=== PATIENT | female | born 1960 | race Caucasian/White ===

== ENCOUNTER 2019-11-10 15:31 | Inpatient (IN) ==
[2019-11-10] MEDS ORDERED: Ipratropium/Albuterol Neb 3 ML IH ONE (15:53)
[2019-11-10] MEDS ORDERED: Isovue-370 500 ML BOTTLE IVP ONE (15:58)
[2019-11-10 16:08] LABS: Hematocrit 38.3 % (35.3-44.9); Hemoglobin 11.8 g/dL (11.5-15.4); Mean Corpuscular HGB Conc 30.8 g/dL (31.6-35.5); Mean Corpuscular Hemoglobin 29.6 pg (28.0-33.3); Mean Platelet Volume 10.6 fL (9.4-12.4); Platelet Count 201 K/mcL (140-400); Red Blood Count 3.99 M/mcL (3.82-4.97); White Blood Count 9.2 K/mcL (4.3-11.1)
[2019-11-10] MEDS ORDERED: methylPREDNISolone 125 MG/2 ML VIAL IVP ONE (16:14)
[2019-11-10 16:20] LABS: Calcium 8.5 mg/dL (8.6-10.3); Potassium 4.7 mEq/L (3.5-5.1)
[2019-11-10] MEDS ORDERED: 0.9 % Sodium Chloride 500 ML IVC STA (16:27)
[2019-11-10 17:38] LABS: Troponin I 0.08 ng/mL (< 0.04)
[2019-11-10] MEDS ORDERED: Aspirin 81 MG TAB.CHEW PO STA (17:44)
[2019-11-10] MEDS ORDERED: CefTRIAXone 1,000 MG VIAL IM ONE (18:35)
[2019-11-10] MEDS ORDERED: Azithromycin 250 MG TABLET PO ONE (18:43)
[2019-11-10] MEDS ORDERED: cefTRIAXone 1,000 MG in Water for inj. (sterile) 10 ML IVP ONE (19:08)
[2019-11-10] MEDS ORDERED: Furosemide 20 MG/2 ML VIAL IVP ONE (20:14)
[2019-11-10] MEDS ORDERED: Naloxone 0.4 MG/ML INJ IVP PRN (21:02)
[2019-11-10] MEDS ORDERED: Nitroglycerin 0.4 MG TAB.SUBL SL PRN (23:03)
[2019-11-11 05:29] LABS: Basophils % 0.5 %; Eosinophils % 0.5 %; Hematocrit 39.1 % (35.3-44.9); Hemoglobin 11.9 g/dL (11.5-15.4); Immature Granulocytes % 3.3 % (0-4); Lymphocytes # 0.8 K/mcL (0.6-4.6); Lymphocytes % 10.2 %; Mean Corpuscular HGB Conc 30.4 g/dL (31.6-35.5); Mean Corpuscular Volume 95.1 fL (83.0-100.0); Mean Platelet Volume 10.2 fL (9.4-12.4); Monocytes # 0.3 K/mcL (0.0-1.3); Monocytes % 3.1 %; Neutrophils # 6.6 K/mcL (1.6-8.9); Nucleated Red Blood Cells 0.4 /100 WBC (0); Platelet Count 215 K/mcL (140-400); Red Blood Count 4.11 M/mcL (3.82-4.97); Red Cell Distribution Width 15.9 % (11.5-14.5); Segmented Neutrophils % 82.4 %
[2019-11-11] MEDS: Ipratropium/Albuterol Neb 3 ML IH PRN ×3 (05:29→20:30)
[2019-11-11 05:49] LABS: Calcium 8.7 mg/dL (8.6-10.3); Potassium 4.5 mEq/L (3.5-5.1)
[2019-11-11 07:09] LABS: Platelet Estimate Normal (Normal); Reactive Lymphocytes Present (Not Present)
[2019-11-11] MEDS: Budesonide/Formoterol 160/4.5 1 PUFF INH IH SCH ×2 (07:58→20:28)
[2019-11-11] MEDS: Baclofen 10 MG TABLET PO SCH ×2 (08:44→20:08)
[2019-11-11] MEDS: Aspirin Enteric Coated 81 MG Tablet PO SCH (08:44)
[2019-11-11] MEDS ORDERED: Lisinopril-HCTZ 20-12.5mg TABLET PO SCH (09:00)
[2019-11-11] MEDS ORDERED: Furosemide 40 MG/4 ML VIAL IVP SCH ×2 (09:00→17:00)
[2019-11-11] MEDS ORDERED: Perflutren Lipid Microsphere 1.3 ML in 0.9 % Sodium Chloride 8.7 ML IVP ONE (11:24)
[2019-11-11] MEDS: Furosemide 40 MG/4 ML VIAL IVP SCH ×2 (15:32→23:50)
[2019-11-11] MEDS ORDERED: Menthol 9.1 MG LOZENGE PO PRN (16:55)
[2019-11-11] MEDS: cefTRIAXone 2,000 MG in Water for inj. (sterile) 20 ML IVP SCH (18:04)
[2019-11-11] MEDS: GuaiFENesin Liq 200 MG/10 ML UDC PO PRN ×2 (18:05→20:08)
[2019-11-11] MEDS: Azithromycin 500 MG in 0.9 % Sodium Chloride 250 ML IVPB SCH (18:05)
[2019-11-11] MEDS: *HR* Heparin 5,000 UNIT/ML VIAL SQ SCH (18:13)
[2019-11-12 01:32] LABS: Basophils # 0.1 K/mcL (0.0-0.2); Basophils % 0.4 %; Eosinophils % 0.2 %; Hematocrit 38.8 % (35.3-44.9); Immature Granulocytes % 0.7 % (0-4); Lymphocytes # 1.9 K/mcL (0.6-4.6); Lymphocytes % 14.3 %; Mean Corpuscular HGB Conc 30.9 g/dL (31.6-35.5); Mean Corpuscular Hemoglobin 29.9 pg (28.0-33.3); Mean Corpuscular Volume 96.5 fL (83.0-100.0); Mean Platelet Volume 10.2 fL (9.4-12.4); Monocytes # 1.7 K/mcL (0.0-1.3); Platelet Count 236 K/mcL (140-400); Red Blood Count 4.02 M/mcL (3.82-4.97); Red Cell Distribution Width 16.1 % (11.5-14.5); Segmented Neutrophils % 71.4 %
[2019-11-12 01:33] LABS: Neutrophils # 9.4 K/mcL (1.6-8.9); White Blood Count 13.1 K/mcL (4.3-11.1)
[2019-11-12 01:51] LABS: Calcium 8.7 mg/dL (8.6-10.3); Potassium 4.3 mEq/L (3.5-5.1)
[2019-11-12 02:08] LABS: Platelet Estimate Normal (Normal)
[2019-11-12] MEDS: *HR* Heparin 5,000 UNIT/ML VIAL SQ SCH ×2 (04:40→16:34)
[2019-11-12] MEDS: Budesonide/Formoterol 160/4.5 1 PUFF INH IH SCH ×2 (08:00→19:40)
[2019-11-12] MEDS: Aspirin Enteric Coated 81 MG Tablet PO SCH (08:58)
[2019-11-12] MEDS: Baclofen 10 MG TABLET PO SCH ×2 (08:59→20:03)
[2019-11-12] MEDS: Furosemide 40 MG/4 ML VIAL IVP SCH (12:16)
[2019-11-12 13:35] LABS: Bilirubin,Urine Negative (Negative); Blood,Urine Negative (Negative); Clarity,Urine Clear (Clear); Color,Urine Yellow (Yellow); Glucose,Urine (UA) Normal (Normal); Ketones,Urine Negative (Negative); Leukocyte Esterase,Urine Negative (Negative); Nitrite,Urine Negative (Negative); Protein,Urine Trace mg/dL (Neg-Trace); Specific Gravity,Urine 1.022 (1.010-1.025); Urobilinogen,Urine Normal (Normal)
[2019-11-12 14:05] LABS: Creatinine,Urine 126 mg/dL; Microalbumin,Urine < 7 mg/L; Protein/Creatinine Ratio,Urine 0.23 mg/mg (0.00-0.20); Sodium, Urine 36.6 mEq/L
[2019-11-12] MEDS: MethylPREDNISolone 40 MG/ML VIAL IVP SCH (16:29)
[2019-11-12] MEDS: cefTRIAXone 2,000 MG in Water for inj. (sterile) 20 ML IVP SCH (16:31)
[2019-11-12] MEDS: Azithromycin 500 MG in 0.9 % Sodium Chloride 250 ML IVPB SCH (16:36)
[2019-11-12] MEDS: Ipratropium/Albuterol Neb 3 ML IH PRN (18:02)
[2019-11-12] MEDS: GuaiFENesin Liq 200 MG/10 ML UDC PO PRN (18:18)
[2019-11-13] MEDS: Ipratropium/Albuterol Neb 3 ML IH PRN ×4 (00:02→22:00)
[2019-11-13 02:35] LABS: VBG HCO3 36 mEq/L (21-27); VBG PCO2 64 mmHg (41-51); VBG PH 7.36 pH Units (7.32-7.42); VBG PO2 144 mmHg (25-50)
[2019-11-13 02:35] LABS: Hematocrit 40.9 % (35.3-44.9); Hemoglobin 12.2 g/dL (11.5-15.4); Mean Corpuscular HGB Conc 29.8 g/dL (31.6-35.5); Mean Corpuscular Hemoglobin 28.8 pg (28.0-33.3); Mean Corpuscular Volume 96.7 fL (83.0-100.0); Platelet Count 251 K/mcL (140-400); Red Blood Count 4.23 M/mcL (3.82-4.97); Red Cell Distribution Width 15.9 % (11.5-14.5)
[2019-11-13 02:58] LABS: Uric Acid 9.8 mg/dL (2.3-7.6)
[2019-11-13 03:02] LABS: Calcium 8.7 mg/dL (8.6-10.3); Complement C3 122 mg/dL (87-200); Potassium 4.8 mEq/L (3.5-5.1)
[2019-11-13] MEDS: *HR* Heparin 5,000 UNIT/ML VIAL SQ SCH ×2 (04:50→17:40)
[2019-11-13] MEDS: Budesonide/Formoterol 160/4.5 1 PUFF INH IH SCH ×2 (07:39→22:00)
[2019-11-13] MEDS: MethylPREDNISolone 40 MG/ML VIAL IVP SCH ×2 (08:59→17:35)
[2019-11-13] MEDS: Baclofen 10 MG TABLET PO SCH ×2 (09:04→21:18)
[2019-11-13] MEDS: Aspirin Enteric Coated 81 MG Tablet PO SCH (09:05)
[2019-11-13] MEDS ORDERED: Acetaminophen 325 MG TABLET PO PRN (10:18)
[2019-11-13] MEDS ORDERED: Furosemide 40 MG/4 ML VIAL IVP ONE (15:15)
[2019-11-13] MEDS: cefTRIAXone 2,000 MG in Water for inj. (sterile) 20 ML IVP SCH (17:35)
[2019-11-13] MEDS: Azithromycin 500 MG in 0.9 % Sodium Chloride 250 ML IVPB SCH (17:40)
[2019-11-13 18:35] LABS: Bilirubin,Urine Negative (Negative); Blood,Urine Negative (Negative); Clarity,Urine Clear (Clear); Color,Urine Yellow (Yellow); Glucose,Urine (UA) Normal (Normal); Ketones,Urine Negative (Negative); Leukocyte Esterase,Urine Negative (Negative); Nitrite,Urine Negative (Negative); PH,Urine 6.5 pH Units (5.0-8.0); Protein,Urine Negative (Neg-Trace); Specific Gravity,Urine 1.014 (1.010-1.025); Urobilinogen,Urine Normal (Normal)
[2019-11-14 02:04] LABS: Hematocrit 38.6 % (35.3-44.9); Hemoglobin 11.8 g/dL (11.5-15.4); Mean Corpuscular HGB Conc 30.6 g/dL (31.6-35.5); Mean Corpuscular Hemoglobin 29.6 pg (28.0-33.3); Mean Corpuscular Volume 96.7 fL (83.0-100.0); Mean Platelet Volume 9.7 fL (9.4-12.4); Platelet Count 217 K/mcL (140-400); Red Blood Count 3.99 M/mcL (3.82-4.97); Red Cell Distribution Width 15.7 % (11.5-14.5); White Blood Count 9.8 K/mcL (4.3-11.1)
[2019-11-14 02:24] LABS: Calcium 8.7 mg/dL (8.6-10.3); Potassium 4.8 mEq/L (3.5-5.1)
[2019-11-14] MEDS: *HR* Heparin 5,000 UNIT/ML VIAL SQ SCH ×2 (06:18→16:58)
[2019-11-14] MEDS: MethylPREDNISolone 40 MG/ML VIAL IVP SCH ×2 (06:18→16:58)
[2019-11-14] MEDS: Budesonide/Formoterol 160/4.5 1 PUFF INH IH SCH ×2 (07:45→19:44)
[2019-11-14] MEDS: Ipratropium/Albuterol Neb 3 ML IH PRN (07:45)
[2019-11-14] MEDS: Aspirin Enteric Coated 81 MG Tablet PO SCH (08:29)
[2019-11-14] MEDS: Baclofen 10 MG TABLET PO SCH ×2 (08:30→20:24)
[2019-11-14] MEDS ORDERED: Furosemide 40 MG/4 ML VIAL IVP SCH (09:00)
[2019-11-14] MEDS: Azithromycin 250 MG TABLET PO SCH (13:02)
[2019-11-14 15:39] LABS: ANA IgG by ELISA NONE DETECTED (None Detected)
[2019-11-14 16:26] LABS: Serine Protease-3 Antibody 3 AU/mL (0-19)
[2019-11-14] MEDS: cefTRIAXone 2,000 MG in Water for inj. (sterile) 20 ML IVP SCH (16:58)
[2019-11-14] MEDS: GuaiFENesin Liq 200 MG/10 ML UDC PO PRN (20:24)
[2019-11-15] MEDS: MethylPREDNISolone 40 MG/ML VIAL IVP SCH ×2 (05:13→17:16)
[2019-11-15] MEDS: *HR* Heparin 5,000 UNIT/ML VIAL SQ SCH ×2 (05:13→17:16)
[2019-11-15 06:45] LABS: Hematocrit 41.7 % (35.3-44.9); Hemoglobin 12.4 g/dL (11.5-15.4); Mean Corpuscular HGB Conc 29.7 g/dL (31.6-35.5); Mean Corpuscular Volume 97.4 fL (83.0-100.0); Mean Platelet Volume 10.2 fL (9.4-12.4); Platelet Count 241 K/mcL (140-400); Red Blood Count 4.28 M/mcL (3.82-4.97); Red Cell Distribution Width 15.7 % (11.5-14.5); White Blood Count 12.1 K/mcL (4.3-11.1)
[2019-11-15 06:45] LABS: VBG HCO3 38 mEq/L (21-27); VBG PCO2 62 mmHg (41-51); VBG PH 7.39 pH Units (7.32-7.42); VBG PO2 141 mmHg (25-50)
[2019-11-15 07:03] LABS: Calcium 9.1 mg/dL (8.6-10.3); Potassium 4.6 mEq/L (3.5-5.1)
[2019-11-15] MEDS: Baclofen 10 MG TABLET PO SCH ×2 (08:00→20:29)
[2019-11-15] MEDS: Aspirin Enteric Coated 81 MG Tablet PO SCH (08:00)
[2019-11-15] MEDS: Furosemide 40 MG TABLET PO SCH (08:00)
[2019-11-15] MEDS: Azithromycin 250 MG TABLET PO SCH (08:01)
[2019-11-15] MEDS: Budesonide/Formoterol 160/4.5 1 PUFF INH IH SCH ×2 (08:18→21:49)
[2019-11-15] MEDS: Ipratropium/Albuterol Neb 3 ML IH PRN ×3 (08:18→21:49)
[2019-11-16 00:32] LABS: Alpha 2 Globulin (PEP) 0.93 g/dL (0.48-1.05)
[2019-11-16] MEDS: *HR* Heparin 5,000 UNIT/ML VIAL SQ SCH (05:55)
[2019-11-16] MEDS: MethylPREDNISolone 40 MG/ML VIAL IVP SCH (05:55)
[2019-11-16 06:09] LABS: Hematocrit 39.4 % (35.3-44.9); Hemoglobin 11.7 g/dL (11.5-15.4); Mean Corpuscular HGB Conc 29.7 g/dL (31.6-35.5); Mean Corpuscular Hemoglobin 29.2 pg (28.0-33.3); Mean Corpuscular Volume 98.3 fL (83.0-100.0); Mean Platelet Volume 10.1 fL (9.4-12.4); Platelet Count 244 K/mcL (140-400); Red Blood Count 4.01 M/mcL (3.82-4.97); Red Cell Distribution Width 15.6 % (11.5-14.5); White Blood Count 10.6 K/mcL (4.3-11.1)
[2019-11-16 06:19] LABS: BUN/Creatinine Ratio 45 (6-26); Blood Urea Nitrogen 50 mg/dL (8-23); Calcium 9.2 mg/dL (8.6-10.3); Carbon Dioxide 39 mEq/L (23-29); Chloride 94 mEq/L (98-107); Glucose 118 mg/dL (70-105); Magnesium 2.2 mg/dL (1.6-2.6); Osmolality,Calculated 298 (280-300); Potassium 4.7 mEq/L (3.5-5.1); Sodium 137 mEq/L (136-145); eGFR For African Americans > 60 (> 60); eGFR For Non-African Americans 50 (> 60)
[2019-11-16 06:51] VITALS: BP 147/71
[2019-11-16] MEDS: Aspirin Enteric Coated 81 MG Tablet PO SCH (07:41)
[2019-11-16] MEDS: Azithromycin 250 MG TABLET PO SCH (07:41)
[2019-11-16] MEDS: Baclofen 10 MG TABLET PO SCH (07:41)
[2019-11-16] MEDS: Furosemide 40 MG TABLET PO SCH (07:42)
[2019-11-16] MEDS ORDERED: predniSONE 20 MG TABLET PO SCH (09:00)
[2019-11-16] MEDS: Budesonide/Formoterol 160/4.5 1 PUFF INH IH SCH (10:04)
[2019-11-16 10:14] LABS: IFE Reflexed NOT DONE
[2019-11-18 16:02] LABS: Urine Collection Volume RANDOM mL
== END 2019-11-16 12:50 | disposition home or self-care (01) | DRG 280 ==
LOC: 2NENU 15:31 → EMEROOARM 15:31 → 3ANU 22:15 → 3BNU 22:22 → SUATTDRO 11-11 11:41 → 2NNU 11-11 15:28 → 2NENU 11-13 13:06
PROVIDERS: ADMIT Student in an Organized Health Care Education/Training Program; ATTEND Internal Medicine

== ENCOUNTER 2020-03-03 03:31 | Inpatient (IN) ==
[2020-03-03 06:36] LABS: Adenovirus Not Detected (Not Detect); Bordetella Pertussis Not Detected (Not Detect); Chlamydophila pneumoniae Not Detected (Not Detect); Coronavirus 229E Not Detected (Not Detect); Coronavirus HKU1 Not Detected (Not Detect); Coronavirus NL63 Not Detected (Not Detect); Coronavirus OC43 Not Detected (Not Detect); Human Metapneumovirus Not Detected (Not Detect); Human Rhinovirus/Enterovirus Not Detected (Not Detect); Influenza A Subtype 2009 H1 Not Detected (Not Detect); Influenza B Not Detected (Not Detect); Mycoplasma pneumoniae Not Detected (Not Detect); Parainfluenza Virus 1 Not Detected (Not Detect); Parainfluenza Virus 2 Not Detected (Not Detect); Parainfluenza Virus 3 Not Detected (Not Detect); Parainfluenza Virus 4 Not Detected (Not Detect); Respiratory Syncytial Virus Not Detected (Not Detect)
[2020-03-03] MEDS ORDERED: Naloxone 0.4 MG/ML INJ IVP PRN (06:45)
[2020-03-03 08:12] LABS: Basophils # 0.1 K/mcL (0.0-0.2); Basophils % 0.4 %; Eosinophils # 0.1 K/mcL (0.0-0.6); Eosinophils % 0.8 %; Hematocrit 26.4 % (35.3-44.9); Hemoglobin 7.9 g/dL (11.5-15.4); Immature Granulocytes % 1.2 % (0-4); Lymphocytes # 2.2 K/mcL (0.6-4.6); Lymphocytes % 14.7 %; Mean Corpuscular HGB Conc 29.9 g/dL (31.6-35.5); Mean Corpuscular Hemoglobin 29.9 pg (28.0-33.3); Mean Platelet Volume 10.5 fL (9.4-12.4); Monocytes # 1.3 K/mcL (0.0-1.3); Monocytes % 8.8 %; Neutrophils # 10.8 K/mcL (1.6-8.9); Platelet Count 198 K/mcL (140-400); Red Blood Count 2.64 M/mcL (3.82-4.97); Red Cell Distribution Width 15.3 % (11.5-14.5); Segmented Neutrophils % 74.1 %; White Blood Count 14.6 K/mcL (4.3-11.1)
[2020-03-03 08:17] LABS: INR 1.1; Prothrombin Time 12.7 Seconds (9.4-12.1)
[2020-03-03 08:29] LABS: Albumin 3.1 g/dL (3.5-5.7); Albumin/Globulin Ratio 1.2 (1.1-2.2); Bilirubin,Total 0.4 mg/dL (0.3-1.0); Calcium 8.1 mg/dL (8.6-10.3); Globulin 2.5 g/dL (2.4-3.5); Total Protein 5.6 g/dL (6.4-8.9); Troponin I 0.07 ng/mL (< 0.04)
[2020-03-03] MEDS ORDERED: Lidocaine -MPF 2% 5 ML VIAL ONE (09:42)
[2020-03-03 10:06] LABS: ABG Base Excess -10 mEq/L (-2 to 3); ABG HCO3 16 mEq/L (21-27); ABG Oxygen Saturation 76 % (95-98); ABG PCO2 33 mmHg (35-45); ABG PH 7.29 pH Units (7.32-7.45); ABG PO2 45 mmHg (85-104); ABG TCO2 17 mEq/L (20-26)
[2020-03-03] MEDS: Pantoprazole 40 MG in 0.9 % Sodium Chloride Mini Bag 100 ML IVC SCH ×3 (10:47→20:40)
[2020-03-03] MEDS: Norepinephrine 4 MG/254 ML IV.SOLN IVC SCH ×3 (10:47→19:02)
[2020-03-03] MEDS ORDERED: 0.9 % Sodium Chloride 250 ML ONE (12:14)
[2020-03-03] MEDS ORDERED: Lidocaine -MPF 2% 2 ML VIAL ONE (15:03)
[2020-03-03] MEDS ORDERED: *HR* Etomidate 40 MG/20 ML VIAL IVP ONE (15:18)
[2020-03-03] MEDS: Piperacillin/Tazobactam 3.375 GM in 0.9 % Sodium Chloride Mini Bag 100 ML IVPB SCH (16:41)
[2020-03-03 16:46] LABS: VBG Ionized Calcium 1.18 mmol/L (1.15-1.35); VBG PH 7.31 pH Units (7.32-7.42)
[2020-03-03] MEDS ORDERED: SODIUM CHLORIDE/NAHCO3/KCL/PEG 4,000 ML SOLN.RECON PO ONE (17:00)
[2020-03-03 17:12] LABS: Calcium 8.4 mg/dL (8.6-10.3); Magnesium 2.2 mg/dL (1.6-2.6)
[2020-03-03 17:30] LABS: INR 1.1; Prothrombin Time 12.3 Seconds (9.4-12.1)
[2020-03-03 19:34] LABS: Hematocrit 30.4 % (35.3-44.9); Hemoglobin 9.7 g/dL (11.5-15.4)
[2020-03-03 22:34] LABS: Hematocrit 32.7 % (35.3-44.9); Hemoglobin 10.3 g/dL (11.5-15.4)
[2020-03-04] MEDS ORDERED: Ringers Solution, Lactated 500 ML ONE (00:27)
[2020-03-04] MEDS ORDERED: Ringers Solution, Lactated 500 ML IVC ONE ×2 (00:39→05:30)
[2020-03-04] MEDS: Norepinephrine 4 MG/254 ML IV.SOLN IVC SCH ×2 (00:41→06:01)
[2020-03-04] MEDS: Piperacillin/Tazobactam 3.375 GM in 0.9 % Sodium Chloride Mini Bag 100 ML IVPB SCH ×3 (01:19→18:15)
[2020-03-04] MEDS: Pantoprazole 40 MG in 0.9 % Sodium Chloride Mini Bag 100 ML IVC SCH ×3 (01:19→11:28)
[2020-03-04] MEDS ORDERED: Acetaminophen 325 MG TABLET PO ONE (01:22)
[2020-03-04] MEDS: Ondansetron 4 MG/2 ML VIAL IVP PRN ×2 (01:53→08:07)
[2020-03-04 04:14] LABS: VBG Ionized Calcium 1.15 mmol/L (1.15-1.35)
[2020-03-04 04:18] LABS: Basophils # 0.1 K/mcL (0.0-0.2); Basophils % 0.8 %; Eosinophils # 0.8 K/mcL (0.0-0.6); Eosinophils % 4.6 %; Hematocrit 31.6 % (35.3-44.9); Hemoglobin 9.7 g/dL (11.5-15.4); Immature Granulocytes % 1.3 % (0-4); Lymphocytes # 1.5 K/mcL (0.6-4.6); Lymphocytes % 8.4 %; Mean Corpuscular HGB Conc 30.7 g/dL (31.6-35.5); Mean Corpuscular Hemoglobin 30.1 pg (28.0-33.3); Mean Corpuscular Volume 98.1 fL (83.0-100.0); Mean Platelet Volume 10.6 fL (9.4-12.4); Monocytes % 11.5 %; Neutrophils # 12.9 K/mcL (1.6-8.9); Nucleated Red Blood Cells 0.1 /100 WBC (0); Platelet Count 238 K/mcL (140-400); Red Blood Count 3.22 M/mcL (3.82-4.97); Red Cell Distribution Width 15.9 % (11.5-14.5); Segmented Neutrophils % 73.4 %; White Blood Count 17.6 K/mcL (4.3-11.1)
[2020-03-04 04:34] LABS: Albumin 3.2 g/dL (3.5-5.7); Albumin/Globulin Ratio 1.2 (1.1-2.2); Bilirubin,Total 0.6 mg/dL (0.3-1.0); Calcium 8.3 mg/dL (8.6-10.3); Globulin 2.7 g/dL (2.4-3.5); Phosphorous 2.6 mg/dL (2.7-4.5); Total Protein 5.9 g/dL (6.4-8.9)
[2020-03-04] MEDS ORDERED: Vancomycin 1,750 MG/517.5 ML IV.SOLN IVPB ONE (08:43)
[2020-03-04] MEDS ORDERED: Vancomycin 1,750 MG in 0.9 % Sodium Chloride 250 ML IVPB SCH (09:00)
[2020-03-04] MEDS: Phenylephrine 10 MG in 0.9 % Sodium Chloride 250 ML IVC SCH ×2 (09:31→16:00)
[2020-03-04 10:54] LABS: Hematocrit 31.1 % (35.3-44.9); Hemoglobin 9.7 g/dL (11.5-15.4)
[2020-03-04] MEDS ORDERED: Aminoglycoside Consult 1 EACH MC ONE (15:22)
[2020-03-04] MEDS ORDERED: *HR* FentaNYL (PF) 100 MCG/2 ML VIAL ONE (16:12)
[2020-03-04] MEDS ORDERED: *HR* Midazolam HCl 2 MG/2 ML VIAL ONE (16:13)
[2020-03-04 19:56] LABS: Hematocrit 33.7 % (35.3-44.9); Hemoglobin 10.1 g/dL (11.5-15.4)
[2020-03-04] MEDS ORDERED: Vancomycin 1,750 MG/517.5 ML IV.SOLN IVPB SCH (21:00)
[2020-03-04] MEDS ORDERED: Furosemide 40 MG/4 ML VIAL IVP ONE (22:33)
[2020-03-04 22:58] LABS: Hematocrit 32.4 % (35.3-44.9); Hemoglobin 9.9 g/dL (11.5-15.4)
[2020-03-05] MEDS: Piperacillin/Tazobactam 3.375 GM in 0.9 % Sodium Chloride Mini Bag 100 ML IVPB SCH ×3 (01:22→17:04)
[2020-03-05 04:12] LABS: Basophils # 0.1 K/mcL (0.0-0.2); Basophils % 0.6 %; Eosinophils % 0.1 %; Hemoglobin 9.7 g/dL (11.5-15.4); Immature Granulocytes % 3.7 % (0-4); Lymphocytes % 5.6 %; Mean Corpuscular HGB Conc 31.3 g/dL (31.6-35.5); Mean Corpuscular Hemoglobin 31.4 pg (28.0-33.3); Mean Corpuscular Volume 100.3 fL (83.0-100.0); Mean Platelet Volume 10.6 fL (9.4-12.4); Monocytes # 1.3 K/mcL (0.0-1.3); Monocytes % 7.4 %; Neutrophils # 14.6 K/mcL (1.6-8.9); Nucleated Red Blood Cells 0.2 /100 WBC (0); Platelet Count 186 K/mcL (140-400); Red Blood Count 3.09 M/mcL (3.82-4.97); Red Cell Distribution Width 16.3 % (11.5-14.5); Segmented Neutrophils % 82.6 %; White Blood Count 17.7 K/mcL (4.3-11.1)
[2020-03-05 04:35] LABS: Calcium 8.1 mg/dL (8.6-10.3)
[2020-03-05] MEDS: Pantoprazole 40 MG VIAL IVP SCH (08:17)
[2020-03-05] MEDS ORDERED: *HR* Metoprolol 5 MG/5 ML VIAL IVP ONE ×2 (08:24→08:26)
[2020-03-05] MEDS ORDERED: Acetaminophen 325 MG TABLET PO PRN (16:59)
[2020-03-05 17:04] LABS: Hematocrit 30.5 % (35.3-44.9); Hemoglobin 9.4 g/dL (11.5-15.4)
[2020-03-05] MEDS: Budesonide/Formoterol 160/4.5 1 PUFF INH IH SCH (21:53)
[2020-03-06] MEDS: Piperacillin/Tazobactam 3.375 GM in 0.9 % Sodium Chloride Mini Bag 100 ML IVPB SCH ×4 (00:46→23:12)
[2020-03-06 03:47] LABS: Basophils # 0.1 K/mcL (0.0-0.2); Basophils % 0.6 %; Eosinophils # 0.5 K/mcL (0.0-0.6); Eosinophils % 3.9 %; Hematocrit 28.3 % (35.3-44.9); Hemoglobin 8.6 g/dL (11.5-15.4); Lymphocytes # 1.2 K/mcL (0.6-4.6); Lymphocytes % 8.4 %; Mean Corpuscular HGB Conc 30.4 g/dL (31.6-35.5); Mean Corpuscular Hemoglobin 30.3 pg (28.0-33.3); Mean Corpuscular Volume 99.6 fL (83.0-100.0); Mean Platelet Volume 10.6 fL (9.4-12.4); Monocytes # 1.1 K/mcL (0.0-1.3); Monocytes % 8.1 %; Neutrophils # 10.7 K/mcL (1.6-8.9); Nucleated Red Blood Cells 0.3 /100 WBC (0); Platelet Count 171 K/mcL (140-400); Red Blood Count 2.84 M/mcL (3.82-4.97); Red Cell Distribution Width 15.9 % (11.5-14.5); White Blood Count 13.6 K/mcL (4.3-11.1)
[2020-03-06 03:54] LABS: VBG Ionized Calcium 1.21 mmol/L (1.15-1.35)
[2020-03-06 04:08] LABS: Potassium 3.8 mEq/L (3.5-5.1)
[2020-03-06 04:09] LABS: Albumin/Globulin Ratio 1.1 (1.1-2.2); Bilirubin,Total 0.6 mg/dL (0.3-1.0); Globulin 2.8 g/dL (2.4-3.5); Magnesium 1.9 mg/dL (1.6-2.6); Phosphorous 2.7 mg/dL (2.7-4.5); Potassium 3.8 mEq/L (3.5-5.1); Total Protein 5.8 g/dL (6.4-8.9)
[2020-03-06] MEDS: Budesonide/Formoterol 160/4.5 1 PUFF INH IH SCH ×2 (07:47→22:11)
[2020-03-06] MEDS: Pantoprazole 40 MG VIAL IVP SCH ×2 (08:55→21:13)
[2020-03-06] MEDS ORDERED: Furosemide 40 MG TABLET PO SCH (09:00)
[2020-03-06] MEDS ORDERED: Ipratropium/Albuterol Neb 3 ML IH SCH (10:00)
[2020-03-06] MEDS ORDERED: Fluticasone Propionate Nasal 50 MCG/SPRAY BOTTLE NS PRN (10:25)
[2020-03-06] MEDS ORDERED: Naloxone 0.4 MG/ML INJ IVP PRN (10:25)
[2020-03-06] MEDS ORDERED: Acetaminophen 325 MG TABLET PO PRN (10:25)
[2020-03-06] MEDS ORDERED: Ondansetron 4 MG/2 ML VIAL IVP PRN (10:25)
[2020-03-06] MEDS: Loratadine 10 MG TABLET PO SCH (11:51)
[2020-03-06] MEDS: Ipratropium/Albuterol Neb 3 ML IH SCH ×2 (16:19→22:11)
[2020-03-06 17:14] LABS: Hematocrit 30.3 % (35.3-44.9); Hemoglobin 9.3 g/dL (11.5-15.4)
[2020-03-06 23:09] LABS: Hematocrit 27.5 % (35.3-44.9); Hemoglobin 8.5 g/dL (11.5-15.4)
[2020-03-07 02:12] LABS: Hematocrit 27.4 % (35.3-44.9); Hemoglobin 8.4 g/dL (11.5-15.4); Mean Corpuscular HGB Conc 30.7 g/dL (31.6-35.5); Mean Corpuscular Hemoglobin 30.7 pg (28.0-33.3); Mean Platelet Volume 10.9 fL (9.4-12.4); Platelet Count 189 K/mcL (140-400); Red Blood Count 2.74 M/mcL (3.82-4.97); Red Cell Distribution Width 15.8 % (11.5-14.5); White Blood Count 13.7 K/mcL (4.3-11.1)
[2020-03-07 02:33] LABS: Calcium 7.8 mg/dL (8.6-10.3); Potassium 3.6 mEq/L (3.5-5.1)
[2020-03-07] MEDS: Ipratropium/Albuterol Neb 3 ML IH SCH ×4 (04:08→21:56)
[2020-03-07] MEDS: Pantoprazole 40 MG VIAL IVP SCH ×2 (08:15→21:36)
[2020-03-07] MEDS: Piperacillin/Tazobactam 3.375 GM in 0.9 % Sodium Chloride Mini Bag 100 ML IVPB SCH ×3 (08:16→23:19)
[2020-03-07] MEDS: Loratadine 10 MG TABLET PO SCH (08:16)
[2020-03-07] MEDS ORDERED: Furosemide 40 MG TABLET PO SCH (09:00)
[2020-03-07] MEDS: Budesonide/Formoterol 160/4.5 1 PUFF INH IH SCH ×2 (10:19→21:56)
[2020-03-07 18:52] LABS: Hemoglobin 9.2 g/dL (11.5-15.4)
[2020-03-07 23:09] VITALS: BP 126/49
== END 2020-03-08 02:40 | disposition left against medical advice (07) | DRG 377 ==
LOC: CDU → SUATTDRO 04:58 → ICNU 07:01 → SUATTDRO 09:00 → 2ANU 03-06 15:43
PROVIDERS: ADMIT Internal Medicine; ATTEND Internal Medicine
PROC: ENDOCBX (2020-03-04 14:20)

== ENCOUNTER 2021-05-29 22:29 | Inpatient (IN) ==
[2021-05-30] MEDS ORDERED: Ondansetron ODT 4 MG TAB.RAPDIS SL PRN (02:43)
[2021-05-30] MEDS ORDERED: DilTIAZem 50 MG in 0.9 % Sodium Chloride 40 ML IVC SCH (02:45)
[2021-05-30] MEDS ORDERED: Perflutren Lipid Microsphere 1.3 ML in 0.9 % Sodium Chloride 8.7 ML IVP PRN (03:12)
[2021-05-30 04:12] LABS: Hematocrit 24.5 % (35.3-44.9); Hemoglobin 7.6 g/dL (11.5-15.4); Mean Corpuscular Hemoglobin 30.3 pg (28.0-33.3); Mean Corpuscular Volume 97.6 fL (83.0-100.0); Mean Platelet Volume 11.1 fL (9.4-12.4); Platelet Count 199 K/mcL (140-400); Red Blood Count 2.51 M/mcL (3.82-4.97); Red Cell Distribution Width 19.6 % (11.5-14.5); White Blood Count 16.8 K/mcL (4.3-11.1)
[2021-05-30 04:13] LABS: VBG Ionized Calcium 1.16 mmol/L (1.15-1.35)
[2021-05-30 04:34] LABS: Calcium 8.5 mg/dL (8.6-10.3); Magnesium 2.4 mg/dL (1.6-2.6); Potassium 4.1 mEq/L (3.5-5.1)
[2021-05-30] MEDS ORDERED: *HR* Heparin 5,000 UNIT/ML VIAL IVP PRN ×2 (04:42)
[2021-05-30] MEDS ORDERED: *HR* Heparin 5,000 UNIT/ML VIAL IVP ONE (04:42)
[2021-05-30 05:41] LABS: Adenovirus Not Detected (Not Detect); Bordetella Pertussis Not Detected (Not Detect); Chlamydophila pneumoniae Not Detected (Not Detect); Coronavirus 229E Not Detected (Not Detect); Coronavirus HKU1 Not Detected (Not Detect); Coronavirus NL63 Not Detected (Not Detect); Coronavirus OC43 Not Detected (Not Detect); Human Metapneumovirus Not Detected (Not Detect); Human Rhinovirus/Enterovirus Not Detected (Not Detect); Influenza A Subtype 2009 H1 Not Detected (Not Detect); Influenza B Not Detected (Not Detect); Mycoplasma pneumoniae Not Detected (Not Detect); Parainfluenza Virus 1 Not Detected (Not Detect); Parainfluenza Virus 2 Not Detected (Not Detect); Parainfluenza Virus 3 Not Detected (Not Detect); Parainfluenza Virus 4 Not Detected (Not Detect); Respiratory Syncytial Virus Not Detected (Not Detect); SARS-CoV-2 Not Detected (Not Detect)
[2021-05-30] MEDS: Heparin 25,000UNIT/250ML 1/2NS 25,000 UNIT/250 ML IV.SOLN IVC SCH (05:58)
[2021-05-30 06:23] LABS: Hematocrit 23.6 % (35.3-44.9); Hemoglobin 7.4 g/dL (11.5-15.4); Mean Corpuscular HGB Conc 31.4 g/dL (31.6-35.5); Mean Corpuscular Hemoglobin 30.7 pg (28.0-33.3); Mean Corpuscular Volume 97.9 fL (83.0-100.0); Mean Platelet Volume 10.9 fL (9.4-12.4); Platelet Count 194 K/mcL (140-400); Red Blood Count 2.41 M/mcL (3.82-4.97); Red Cell Distribution Width 19.4 % (11.5-14.5); White Blood Count 15.2 K/mcL (4.3-11.1)
[2021-05-30 06:31] LABS: Heparin anti-factor XA UFH < 0.04 IU/mL (0.30-0.70); INR 1.2; Prothrombin Time 12.9 Seconds (9.4-12.1)
[2021-05-30] MEDS: cefTRIAXone 1,000 MG in Water for inj. (sterile) 10 ML IVP SCH (09:00)
[2021-05-30] MEDS: Azithromycin 250 MG TABLET PO SCH (09:01)
[2021-05-30 10:15] LABS: Estimated Average Glucose 82 mg/dl; Hemoglobin A1C 4.5 %
[2021-05-30] MEDS ORDERED: Nitroglycerin 0.4 MG TAB.SUBL SL PRN (10:31)
[2021-05-30] MEDS: Aspirin Enteric Coated 81 MG Tablet PO SCH (11:49)
[2021-05-30] MEDS: Metoprolol XL (24 HR) Succ 25 MG TAB.ER.24H PO SCH (11:49)
[2021-05-30] MEDS: Acetaminophen 325 MG TABLET PO PRN (13:04)
[2021-05-31 00:57] LABS: Hematocrit 24.1 % (35.3-44.9); Mean Corpuscular Hemoglobin 29.2 pg (28.0-33.3); Mean Corpuscular Volume 100.4 fL (83.0-100.0); Mean Platelet Volume 10.6 fL (9.4-12.4); Platelet Count 180 K/mcL (140-400); Red Cell Distribution Width 19.6 % (11.5-14.5); White Blood Count 12.4 K/mcL (4.3-11.1)
[2021-05-31 01:35] LABS: BUN/Creatinine Ratio 35 (6-26); Blood Urea Nitrogen 36 mg/dL (8-23); Calcium 8.1 mg/dL (8.6-10.3); Carbon Dioxide 27 mEq/L (23-29); Chloride 107 mEq/L (98-107); Glucose 103 mg/dL (70-105); Magnesium 2.3 mg/dL (1.6-2.6); Osmolality,Calculated 295 (280-300); Phosphorous 1.6 mg/dL (2.7-4.5); Sodium 138 mEq/L (136-145); Troponin I 2.23 ng/mL (< 0.04); eGFR For African Americans > 60 (> 60); eGFR For Non-African Americans 54 (> 60)
[2021-05-31] MEDS: Heparin 25,000UNIT/250ML 1/2NS 25,000 UNIT/250 ML IV.SOLN IVC SCH (07:54)
[2021-05-31] MEDS: Metoprolol XL (24 HR) Succ 25 MG TAB.ER.24H PO SCH (07:54)
[2021-05-31] MEDS: Aspirin Enteric Coated 81 MG Tablet PO SCH (07:54)
[2021-05-31] MEDS: Azithromycin 250 MG TABLET PO SCH (07:54)
[2021-05-31] MEDS: cefTRIAXone 1,000 MG in Water for inj. (sterile) 10 ML IVP SCH (07:55)
[2021-05-31] MEDS ORDERED: SODIUM CHLORIDE/NAHCO3/KCL/PEG 4,000 ML SOLN.RECON PO ONE (17:00)
[2021-06-01 02:25] LABS: Hematocrit 19.7 % (35.3-44.9); Mean Corpuscular HGB Conc 29.9 g/dL (31.6-35.5); Mean Corpuscular Hemoglobin 30.3 pg (28.0-33.3); Mean Platelet Volume 10.6 fL (9.4-12.4); Platelet Count 199 K/mcL (140-400); Red Blood Count 1.95 M/mcL (3.82-4.97); Red Cell Distribution Width 19.9 % (11.5-14.5); White Blood Count 15.7 K/mcL (4.3-11.1)
[2021-06-01 02:34] LABS: Hemoglobin 5.9 g/dL (11.5-15.4)
[2021-06-01 02:42] LABS: Alanine Aminotransferase 10 Units/L (7-52); Albumin 3.3 g/dL (3.5-5.7); Albumin/Globulin Ratio 1.3 (1.1-2.2); Alkaline Phosphatase 51 Units/L (34-104); Aspartate Amino Transferase 21 Units/L (13-39); BUN/Creatinine Ratio 27 (6-26); Bilirubin,Direct 0.1 mg/dL (0.0-0.2); Bilirubin,Indirect 0.2 mg/dL (0.0-1.0); Bilirubin,Total 0.3 mg/dL (0.3-1.0); Blood Urea Nitrogen 25 mg/dL (8-23); Carbon Dioxide 24 mEq/L (23-29); Chloride 103 mEq/L (98-107); Globulin 2.5 g/dL (2.4-3.5); Glucose 113 mg/dL (70-105); Magnesium 1.8 mg/dL (1.6-2.6); Osmolality,Calculated 281 (280-300); Phosphorous 1.4 mg/dL (2.7-4.5); Potassium 3.9 mEq/L (3.5-5.1); Sodium 133 mEq/L (136-145); Total Protein 5.8 g/dL (6.4-8.9); eGFR For African Americans > 60 (> 60); eGFR For Non-African Americans > 60 (> 60)
[2021-06-01] MEDS ORDERED: 0.9 % Sodium Chloride 500 ML ONE (04:19)
[2021-06-01] MEDS: Azithromycin 250 MG TABLET PO SCH (08:02)
[2021-06-01] MEDS: Aspirin Enteric Coated 81 MG Tablet PO SCH (08:02)
[2021-06-01] MEDS: Metoprolol XL (24 HR) Succ 25 MG TAB.ER.24H PO SCH (08:02)
[2021-06-01] MEDS ORDERED: Furosemide 20 MG/2 ML VIAL IVP ONE (09:12)
[2021-06-01 10:29] LABS: Hematocrit 24.1 % (35.3-44.9); Hemoglobin 7.3 g/dL (11.5-15.4)
[2021-06-01] MEDS ORDERED: Lidocaine -MPF 2% 5 ML VIAL SQ ONE (14:28)
[2021-06-01] MEDS ORDERED: *HR* Phenylephrine 10 MG/ML VIAL IVC ONE (14:28)
[2021-06-01] MEDS ORDERED: *HR* Propofol 500 MG/50 ML BOTTLE IVP ONE (14:28)
[2021-06-01] MEDS: Acetaminophen 325 MG TABLET PO PRN (22:23)
[2021-06-02] MEDS: Ipratropium/Albuterol Neb 3 ML IH PRN ×4 (01:58→20:15)
[2021-06-02 03:34] LABS: Basophils # 0.1 K/mcL (0.0-0.2); Basophils % 0.4 %; Eosinophils # 0.5 K/mcL (0.0-0.6); Eosinophils % 2.8 %; Hematocrit 21.4 % (35.3-44.9); Hemoglobin 6.7 g/dL (11.5-15.4); Immature Granulocytes % 2.5 % (0-4); Lymphocytes # 1.3 K/mcL (0.6-4.6); Lymphocytes % 7.6 %; Mean Corpuscular HGB Conc 31.3 g/dL (31.6-35.5); Mean Corpuscular Hemoglobin 30.3 pg (28.0-33.3); Mean Corpuscular Volume 96.8 fL (83.0-100.0); Mean Platelet Volume 10.3 fL (9.4-12.4); Monocytes # 1.5 K/mcL (0.0-1.3); Nucleated Red Blood Cells 0.6 /100 WBC (0); Platelet Count 187 K/mcL (140-400); Red Blood Count 2.21 M/mcL (3.82-4.97); Red Cell Distribution Width 21.5 % (11.5-14.5); Segmented Neutrophils % 77.7 %; White Blood Count 16.7 K/mcL (4.3-11.1)
[2021-06-02 03:50] LABS: BUN/Creatinine Ratio 15 (6-26); Blood Urea Nitrogen 14 mg/dL (8-23); Calcium 8.1 mg/dL (8.6-10.3); Carbon Dioxide 27 mEq/L (23-29); Chloride 102 mEq/L (98-107); Glucose 112 mg/dL (70-105); Osmolality,Calculated 281 (280-300); Potassium 3.6 mEq/L (3.5-5.1); Sodium 135 mEq/L (136-145); eGFR For African Americans > 60 (> 60); eGFR For Non-African Americans > 60 (> 60)
[2021-06-02] MEDS ORDERED: 0.9 % Sodium Chloride 250 ML ONE (07:30)
[2021-06-02] MEDS: Metoprolol XL (24 HR) Succ 25 MG TAB.ER.24H PO SCH (07:57)
[2021-06-02] MEDS: Azithromycin 250 MG TABLET PO SCH (07:57)
[2021-06-02] MEDS: Aspirin Enteric Coated 81 MG Tablet PO SCH (07:57)
[2021-06-02] MEDS ORDERED: Fluticasone Propionate Nasal 50 MCG/SPRAY BOTTLE NS PRN (08:07)
[2021-06-02] MEDS ORDERED: lisinopriL 5 MG TABLET PO SCH (09:00)
[2021-06-02] MEDS: Baclofen 10 MG TABLET PO SCH ×2 (10:10→20:34)
[2021-06-02] MEDS ORDERED: Furosemide 20 MG/2 ML VIAL IVP ONE (10:50)
[2021-06-02] MEDS: Budesonide/Formoterol 160/4.5 1 PUFF INH IH SCH ×2 (11:47→20:15)
[2021-06-02 14:29] LABS: Hematocrit 28.3 % (35.3-44.9)
[2021-06-02 14:37] LABS: Hemoglobin 8.8 g/dL (11.5-15.4)
[2021-06-02] MEDS: Acetaminophen 325 MG TABLET PO PRN (17:26)
[2021-06-02] MEDS: Furosemide 40 MG/4 ML VIAL IVP SCH (20:33)
[2021-06-02 21:40] LABS: Hematocrit 26.7 % (35.3-44.9); Hemoglobin 8.5 g/dL (11.5-15.4)
[2021-06-02] MEDS: Melatonin 3 MG TABLET PO SCH (23:26)
[2021-06-03] MEDS: Ipratropium/Albuterol Neb 3 ML IH PRN ×2 (03:32→15:53)
[2021-06-03] MEDS: Acetaminophen 325 MG TABLET PO PRN ×2 (04:59→13:25)
[2021-06-03 07:00] LABS: BUN/Creatinine Ratio 12 (6-26); Blood Urea Nitrogen 12 mg/dL (8-23); Calcium 8.4 mg/dL (8.6-10.3); Carbon Dioxide 29 mEq/L (23-29); Chloride 98 mEq/L (98-107); Glucose 119 mg/dL (70-105); Osmolality,Calculated 283 (280-300); Sodium 136 mEq/L (136-145); eGFR For African Americans > 60 (> 60); eGFR For Non-African Americans 57 (> 60)
[2021-06-03 07:30] LABS: Hematocrit 25.8 % (35.3-44.9); Hemoglobin 8.2 g/dL (11.5-15.4)
[2021-06-03 07:51] LABS: White Blood Count 17.9 K/mcL (4.3-11.1)
[2021-06-03 07:52] LABS: Hematocrit 26.2 % (35.3-44.9); Mean Corpuscular HGB Conc 30.5 g/dL (31.6-35.5); Mean Corpuscular Hemoglobin 29.6 pg (28.0-33.3); Mean Platelet Volume 10.7 fL (9.4-12.4); Neutrophils # 14.7 K/mcL (1.6-8.9); Platelet Count 186 K/mcL (140-400); Red Cell Distribution Width 21.2 % (11.5-14.5)
[2021-06-03 07:54] LABS: Basophils # 0.1 K/mcL (0.0-0.2); Basophils % 0.4 %; Eosinophils # 0.3 K/mcL (0.0-0.6); Eosinophils % 1.7 %; Lymphocytes # 0.8 K/mcL (0.6-4.6); Lymphocytes % 4.5 %; Monocytes # 1.6 K/mcL (0.0-1.3); Monocytes % 8.8 %
[2021-06-03] MEDS: Budesonide/Formoterol 160/4.5 1 PUFF INH IH SCH ×2 (08:22→20:43)
[2021-06-03] MEDS: Metoprolol XL (24 HR) Succ 25 MG TAB.ER.24H PO SCH (08:46)
[2021-06-03] MEDS: Azithromycin 250 MG TABLET PO SCH (08:46)
[2021-06-03] MEDS: Baclofen 10 MG TABLET PO SCH (08:46)
[2021-06-03] MEDS: Furosemide 40 MG/4 ML VIAL IVP SCH (08:47)
[2021-06-03] MEDS ORDERED: lisinopriL 5 MG TABLET PO SCH (09:00)
[2021-06-03] MEDS ORDERED: *HR* Metoprolol 5 MG/5 ML VIAL IVP ONE (17:37)
[2021-06-03] MEDS ORDERED: *HR* Digoxin 0.5 MG/2 ML AMPUL IVP ONE (17:47)
[2021-06-03 18:34] LABS: Adenovirus Not Detected (Not Detect); Bordetella Pertussis Not Detected (Not Detect); Chlamydophila pneumoniae Not Detected (Not Detect); Coronavirus 229E Not Detected (Not Detect); Coronavirus HKU1 Not Detected (Not Detect); Coronavirus NL63 Not Detected (Not Detect); Coronavirus OC43 Not Detected (Not Detect); Human Metapneumovirus Not Detected (Not Detect); Human Rhinovirus/Enterovirus Not Detected (Not Detect); Influenza A Subtype 2009 H1 Not Detected (Not Detect); Influenza B Not Detected (Not Detect); Mycoplasma pneumoniae Not Detected (Not Detect); Parainfluenza Virus 1 Not Detected (Not Detect); Parainfluenza Virus 2 Not Detected (Not Detect); Parainfluenza Virus 3 Not Detected (Not Detect); Parainfluenza Virus 4 Not Detected (Not Detect); Respiratory Syncytial Virus Not Detected (Not Detect); SARS-CoV-2 Not Detected (Not Detect)
[2021-06-03 19:10] LABS: Basophils % 0.3 %; Eosinophils # 0.3 K/mcL (0.0-0.6); Eosinophils % 1.8 %; Hemoglobin 7.9 g/dL (11.5-15.4); Immature Granulocytes % 1.4 % (0-4); Lymphocytes # 1.1 K/mcL (0.6-4.6); Lymphocytes % 6.7 %; Mean Corpuscular HGB Conc 30.4 g/dL (31.6-35.5); Mean Corpuscular Hemoglobin 29.3 pg (28.0-33.3); Mean Corpuscular Volume 96.3 fL (83.0-100.0); Mean Platelet Volume 10.9 fL (9.4-12.4); Monocytes # 1.1 K/mcL (0.0-1.3); Monocytes % 6.9 %; Neutrophils # 13.2 K/mcL (1.6-8.9); Nucleated Red Blood Cells 0.6 /100 WBC (0); Platelet Count 215 K/mcL (140-400); Red Cell Distribution Width 21.3 % (11.5-14.5); Segmented Neutrophils % 82.9 %; White Blood Count 15.9 K/mcL (4.3-11.1)
[2021-06-03] MEDS: Melatonin 3 MG TABLET PO SCH (20:17)
[2021-06-04 01:01] LABS: Basophils # 0.1 K/mcL (0.0-0.2); Basophils % 0.5 %; Eosinophils # 0.4 K/mcL (0.0-0.6); Eosinophils % 2.3 %; Hematocrit 25.3 % (35.3-44.9); Hemoglobin 7.6 g/dL (11.5-15.4); Immature Granulocytes % 1.7 % (0-4); Lymphocytes # 1.2 K/mcL (0.6-4.6); Lymphocytes % 7.6 %; Mean Corpuscular Hemoglobin 29.3 pg (28.0-33.3); Mean Corpuscular Volume 97.7 fL (83.0-100.0); Mean Platelet Volume 10.7 fL (9.4-12.4); Monocytes # 1.6 K/mcL (0.0-1.3); Monocytes % 10.3 %; Neutrophils # 11.8 K/mcL (1.6-8.9); Nucleated Red Blood Cells 0.7 /100 WBC (0); Platelet Count 221 K/mcL (140-400); Red Blood Count 2.59 M/mcL (3.82-4.97); Red Cell Distribution Width 21.6 % (11.5-14.5); Segmented Neutrophils % 77.6 %; White Blood Count 15.2 K/mcL (4.3-11.1)
[2021-06-04 01:14] LABS: Magnesium 2.1 mg/dL (1.6-2.6); Phosphorous 2.8 mg/dL (2.7-4.5); Potassium 3.4 mEq/L (3.5-5.1)
[2021-06-04] MEDS: Metoprolol XL (24 HR) Succ 25 MG TAB.ER.24H PO SCH (08:33)
[2021-06-04] MEDS: Azithromycin 250 MG TABLET PO SCH (08:34)
[2021-06-04] MEDS: Budesonide/Formoterol 160/4.5 1 PUFF INH IH SCH ×2 (11:02→22:15)
[2021-06-04] MEDS: GuaiFENesin/Dextromethorphan TABLET PO SCH ×2 (12:10→20:32)
[2021-06-04 13:09] LABS: Hematocrit 25.7 % (35.3-44.9); Hemoglobin 7.8 g/dL (11.5-15.4)
[2021-06-04] MEDS ORDERED: *HR* Metoprolol 5 MG/5 ML VIAL IVP PRN (15:50)
[2021-06-04] MEDS: Melatonin 3 MG TABLET PO SCH (20:32)
[2021-06-05 02:26] LABS: Basophils % 0.4 %; Eosinophils # 0.4 K/mcL (0.0-0.6); Hematocrit 23.4 % (35.3-44.9); Hemoglobin 7.1 g/dL (11.5-15.4); Lymphocytes # 1.1 K/mcL (0.6-4.6); Mean Corpuscular HGB Conc 30.3 g/dL (31.6-35.5); Mean Corpuscular Volume 98.7 fL (83.0-100.0); Mean Platelet Volume 10.7 fL (9.4-12.4); Monocytes # 1.1 K/mcL (0.0-1.3); Neutrophils # 8.1 K/mcL (1.6-8.9); Platelet Count 212 K/mcL (140-400); Red Blood Count 2.37 M/mcL (3.82-4.97); Red Cell Distribution Width 20.8 % (11.5-14.5); Segmented Neutrophils % 74.6 %; White Blood Count 10.9 K/mcL (4.3-11.1)
[2021-06-05 02:42] LABS: Calcium 8.1 mg/dL (8.6-10.3); Magnesium 2.1 mg/dL (1.6-2.6); Phosphorous 3.4 mg/dL (2.7-4.5); Potassium 3.5 mEq/L (3.5-5.1)
[2021-06-05] MEDS: Ipratropium/Albuterol Neb 3 ML IH PRN ×2 (03:26→16:23)
[2021-06-05] MEDS: Azithromycin 250 MG TABLET PO SCH (07:26)
[2021-06-05] MEDS: Metoprolol XL (24 HR) Succ 25 MG TAB.ER.24H PO SCH (07:26)
[2021-06-05] MEDS ORDERED: Iron Sucrose Complex 400 MG in 0.9 % Sodium Chloride 250 ML IVPB ONE (08:37)
[2021-06-05 09:20] LABS: Bilirubin,Urine Negative (Negative); Blood,Urine Negative (Negative); Clarity,Urine Clear (Clear); Color,Urine Light-Yellow (Yellow); Glucose,Urine (UA) Normal (Normal); Ketones,Urine Negative (Negative); Leukocyte Esterase,Urine Negative (Negative); Nitrite,Urine Negative (Negative); Protein,Urine Trace mg/dL (Neg-Trace); Specific Gravity,Urine 1.015 (1.010-1.025); Urobilinogen,Urine Normal (Normal)
[2021-06-05] MEDS: Budesonide/Formoterol 160/4.5 1 PUFF INH IH SCH ×2 (09:33→20:21)
[2021-06-05 12:41] LABS: Creatinine,Urine 92 mg/dL; Protein/Creatinine Ratio,Urine 0.37 mg/mg (0.00-0.20); Sodium, Urine 16.3 mEq/L
[2021-06-05 14:21] LABS: Microalbumin,Urine < 7 mg/L
[2021-06-05 14:35] LABS: Hematocrit 26.6 % (35.3-44.9)
[2021-06-05 16:22] LABS: ABG Base Excess 2 mEq/L (-2 to 3); ABG HCO3 29 mEq/L (21-27); ABG Oxygen Saturation 92 % (95-98); ABG PCO2 53 mmHg (35-45); ABG PH 7.34 pH Units (7.32-7.45); ABG PO2 70 mmHg (85-104); ABG TCO2 30 mEq/L (20-26)
[2021-06-05] MEDS: Melatonin 3 MG TABLET PO SCH (22:46)
[2021-06-06 02:17] LABS: Basophils % 0.3 %; Eosinophils # 0.3 K/mcL (0.0-0.6); Eosinophils % 2.7 %; Hematocrit 24.9 % (35.3-44.9); Hemoglobin 7.7 g/dL (11.5-15.4); Immature Granulocytes % 0.8 % (0-4); Lymphocytes # 0.9 K/mcL (0.6-4.6); Lymphocytes % 7.6 %; Mean Corpuscular HGB Conc 30.9 g/dL (31.6-35.5); Mean Corpuscular Hemoglobin 30.4 pg (28.0-33.3); Mean Corpuscular Volume 98.4 fL (83.0-100.0); Monocytes # 1.1 K/mcL (0.0-1.3); Monocytes % 8.9 %; Neutrophils # 9.4 K/mcL (1.6-8.9); Nucleated Red Blood Cells 0.2 /100 WBC (0); Platelet Count 215 K/mcL (140-400); Red Blood Count 2.53 M/mcL (3.82-4.97); Red Cell Distribution Width 20.1 % (11.5-14.5); Segmented Neutrophils % 79.7 %; White Blood Count 11.8 K/mcL (4.3-11.1)
[2021-06-06 02:39] LABS: BUN/Creatinine Ratio 22 (6-26); Blood Urea Nitrogen 24 mg/dL (8-23); Calcium 8.1 mg/dL (8.6-10.3); Carbon Dioxide 27 mEq/L (23-29); Chloride 101 mEq/L (98-107); Glucose 99 mg/dL (70-105); Osmolality,Calculated 284 (280-300); Phosphorous 2.4 mg/dL (2.7-4.5); Potassium 3.6 mEq/L (3.5-5.1); Sodium 135 mEq/L (136-145); eGFR For African Americans > 60 (> 60); eGFR For Non-African Americans 52 (> 60)
[2021-06-06] MEDS: Ipratropium/Albuterol Neb 3 ML IH PRN (03:54)
[2021-06-06] MEDS ORDERED: *HR* Metoprolol 5 MG/5 ML VIAL IVP ONE (04:17)
[2021-06-06] MEDS ORDERED: methylPREDNISolone 125 MG/2 ML VIAL IVP ONE (04:33)
[2021-06-06] MEDS: Levalbuterol Neb 1.25 MG/3 ML IH SCH ×5 (07:55→23:27)
[2021-06-06] MEDS: Budesonide/Formoterol 160/4.5 1 PUFF INH IH SCH ×2 (07:56→20:00)
[2021-06-06] MEDS: Azithromycin 250 MG TABLET PO SCH (09:34)
[2021-06-06] MEDS: Metoprolol XL (24 HR) Succ 25 MG TAB.ER.24H PO SCH (09:35)
[2021-06-06] MEDS: *HR* LORazepam 2 MG/ML VIAL IVP PRN (17:58)
[2021-06-07] MEDS: Levalbuterol Neb 1.25 MG/3 ML IH SCH ×5 (04:07→20:08)
[2021-06-07] MEDS: Melatonin 3 MG TABLET PO SCH ×2 (04:56→22:22)
[2021-06-07] MEDS: Budesonide/Formoterol 160/4.5 1 PUFF INH IH SCH ×2 (07:47→20:08)
[2021-06-07 07:49] LABS: Basophils % 0.1 %; Hematocrit 27.3 % (35.3-44.9); Hemoglobin 8.1 g/dL (11.5-15.4); Immature Granulocytes % 0.8 % (0-4); Lymphocytes # 0.5 K/mcL (0.6-4.6); Lymphocytes % 2.7 %; Mean Corpuscular HGB Conc 29.7 g/dL (31.6-35.5); Mean Corpuscular Hemoglobin 29.1 pg (28.0-33.3); Mean Corpuscular Volume 98.2 fL (83.0-100.0); Mean Platelet Volume 10.8 fL (9.4-12.4); Monocytes # 0.9 K/mcL (0.0-1.3); Monocytes % 4.8 %; Nucleated Red Blood Cells 0.1 /100 WBC (0); Platelet Count 237 K/mcL (140-400); Red Blood Count 2.78 M/mcL (3.82-4.97); Segmented Neutrophils % 91.6 %
[2021-06-07 08:02] LABS: Neutrophils # 16.8 K/mcL (1.6-8.9); White Blood Count 18.3 K/mcL (4.3-11.1)
[2021-06-07 08:17] LABS: Magnesium 2.2 mg/dL (1.6-2.6); Phosphorous 2.7 mg/dL (2.7-4.5)
[2021-06-07 08:25] LABS: Ferritin 434 ng/mL (10-120); Iron 47 mcg/dL (50-170)
[2021-06-07 08:28] LABS: BUN/Creatinine Ratio 26 (6-26); Blood Urea Nitrogen 25 mg/dL (8-23); Calcium 8.8 mg/dL (8.6-10.3); Carbon Dioxide 29 mEq/L (23-29); Chloride 101 mEq/L (98-107); Glucose 118 mg/dL (70-105); Osmolality,Calculated 287 (280-300); Potassium 4.5 mEq/L (3.5-5.1); Sodium 136 mEq/L (136-145); eGFR For African Americans > 60 (> 60); eGFR For Non-African Americans 58 (> 60)
[2021-06-07] MEDS ORDERED: Furosemide 40 MG/4 ML VIAL IVP ONE (08:40)
[2021-06-07] MEDS: *HR* LORazepam 2 MG/ML VIAL IVP PRN (09:37)
[2021-06-07] MEDS: hydrOXYzine pamoate 25 MG CAPSULE PO PRN ×2 (09:37→22:43)
[2021-06-07] MEDS: Metoprolol XL (24 HR) Succ 25 MG TAB.ER.24H PO SCH (09:37)
[2021-06-07] MEDS: predniSONE 20 MG TABLET PO SCH (22:23)
[2021-06-08] MEDS: Levalbuterol Neb 1.25 MG/3 ML IH SCH ×7 (00:05→23:09)
[2021-06-08 02:27] LABS: Basophils # 0.1 K/mcL (0.0-0.2); Basophils % 0.2 %; Eosinophils # 0.1 K/mcL (0.0-0.6); Eosinophils % 0.5 %; Hematocrit 27.5 % (35.3-44.9); Hemoglobin 8.2 g/dL (11.5-15.4); Immature Granulocytes % 0.6 % (0-4); Lymphocytes # 0.4 K/mcL (0.6-4.6); Lymphocytes % 1.7 %; Mean Corpuscular HGB Conc 29.8 g/dL (31.6-35.5); Mean Corpuscular Volume 100.7 fL (83.0-100.0); Mean Platelet Volume 10.4 fL (9.4-12.4); Monocytes # 1.3 K/mcL (0.0-1.3); Monocytes % 6.3 %; Neutrophils # 18.6 K/mcL (1.6-8.9); Platelet Count 236 K/mcL (140-400); Red Blood Count 2.73 M/mcL (3.82-4.97); Red Cell Distribution Width 20.2 % (11.5-14.5); Segmented Neutrophils % 90.7 %; White Blood Count 20.5 K/mcL (4.3-11.1)
[2021-06-08 02:47] LABS: Calcium 8.6 mg/dL (8.6-10.3); Magnesium 2.2 mg/dL (1.6-2.6); Phosphorous 2.1 mg/dL (2.7-4.5); Potassium 4.4 mEq/L (3.5-5.1)
[2021-06-08 02:48] LABS: % Iron Saturation 6 % (15-50); Iron 22 mcg/dL (50-170); Transferrin 249 mg/dL (203-362)
[2021-06-08 03:01] LABS: % Iron Saturation 14 % (15-50); Transferrin 240 mg/dL (203-362)
[2021-06-08 03:06] LABS: Ferritin 359 ng/mL (10-120)
[2021-06-08] MEDS ORDERED: Tiotropium 10 INH DOSE IH ONE (07:49)
[2021-06-08] MEDS: Tiotropium 10 INH DOSE IH SCH (07:51)
[2021-06-08] MEDS: Budesonide/Formoterol 160/4.5 1 PUFF INH IH SCH ×2 (07:51→20:14)
[2021-06-08] MEDS: Metoprolol XL (24 HR) Succ 25 MG TAB.ER.24H PO SCH (10:15)
[2021-06-08] MEDS: predniSONE 20 MG TABLET PO SCH (10:15)
[2021-06-08] MEDS: Acetaminophen 325 MG TABLET PO PRN (15:46)
[2021-06-08] MEDS: Melatonin 3 MG TABLET PO SCH (20:53)
[2021-06-08] MEDS: hydrOXYzine pamoate 25 MG CAPSULE PO PRN (21:02)
[2021-06-09] MEDS: Levalbuterol Neb 1.25 MG/3 ML IH SCH ×6 (04:03→23:40)
[2021-06-09 04:42] LABS: ABG Base Excess 8 mEq/L (-2 to 3); ABG HCO3 34 mEq/L (21-27); ABG Oxygen Saturation 80 % (95-98); ABG PCO2 55 mmHg (35-45); ABG PH 7.39 pH Units (7.32-7.45); ABG PO2 46 mmHg (85-104); ABG TCO2 35 mEq/L (20-26)
[2021-06-09 05:36] LABS: Hematocrit 26.7 % (35.3-44.9); Mean Corpuscular Hemoglobin 30.3 pg (28.0-33.3); Mean Corpuscular Volume 101.1 fL (83.0-100.0); Mean Platelet Volume 10.5 fL (9.4-12.4); Platelet Count 237 K/mcL (140-400); Red Blood Count 2.64 M/mcL (3.82-4.97); Red Cell Distribution Width 19.9 % (11.5-14.5); White Blood Count 14.3 K/mcL (4.3-11.1)
[2021-06-09 06:01] LABS: % Iron Saturation 13 % (15-50); BUN/Creatinine Ratio 23 (6-26); Blood Urea Nitrogen 23 mg/dL (8-23); Calcium 8.6 mg/dL (8.6-10.3); Carbon Dioxide 33 mEq/L (23-29); Chloride 98 mEq/L (98-107); Glucose 110 mg/dL (70-105); Iron 44 mcg/dL (50-170); Magnesium 2.3 mg/dL (1.6-2.6); Osmolality,Calculated 288 (280-300); Phosphorous 1.5 mg/dL (2.7-4.5); Sodium 137 mEq/L (136-145); Transferrin 234 mg/dL (203-362); eGFR For African Americans > 60 (> 60); eGFR For Non-African Americans 56 (> 60)
[2021-06-09 06:16] LABS: Ferritin 450 ng/mL (10-120)
[2021-06-09] MEDS: Budesonide/Formoterol 160/4.5 1 PUFF INH IH SCH ×2 (07:55→19:55)
[2021-06-09] MEDS: Tiotropium 10 INH DOSE IH SCH (07:55)
[2021-06-09] MEDS: Metoprolol XL (24 HR) Succ 25 MG TAB.ER.24H PO SCH (08:23)
[2021-06-09] MEDS: predniSONE 20 MG TABLET PO SCH (08:23)
[2021-06-09] MEDS: Melatonin 3 MG TABLET PO SCH (22:19)
[2021-06-09] MEDS: hydrOXYzine pamoate 25 MG CAPSULE PO PRN (22:19)
[2021-06-10] MEDS: Levalbuterol Neb 1.25 MG/3 ML IH SCH ×6 (04:25→21:11)
[2021-06-10 06:32] LABS: Hematocrit 28.9 % (35.3-44.9); Hemoglobin 8.5 g/dL (11.5-15.4); Mean Corpuscular HGB Conc 29.4 g/dL (31.6-35.5); Mean Corpuscular Hemoglobin 29.8 pg (28.0-33.3); Mean Corpuscular Volume 101.4 fL (83.0-100.0); Mean Platelet Volume 10.5 fL (9.4-12.4); Platelet Count 247 K/mcL (140-400); Red Blood Count 2.85 M/mcL (3.82-4.97); Red Cell Distribution Width 19.8 % (11.5-14.5); White Blood Count 13.6 K/mcL (4.3-11.1)
[2021-06-10 06:43] LABS: BUN/Creatinine Ratio 26 (6-26); Blood Urea Nitrogen 25 mg/dL (8-23); Calcium 8.7 mg/dL (8.6-10.3); Carbon Dioxide 34 mEq/L (23-29); Chloride 99 mEq/L (98-107); Glucose 86 mg/dL (70-105); Magnesium 2.3 mg/dL (1.6-2.6); Osmolality,Calculated 288 (280-300); Phosphorous 2.6 mg/dL (2.7-4.5); Potassium 4.3 mEq/L (3.5-5.1); Sodium 137 mEq/L (136-145); eGFR For African Americans > 60 (> 60); eGFR For Non-African Americans 58 (> 60)
[2021-06-10] MEDS: Metoprolol XL (24 HR) Succ 25 MG TAB.ER.24H PO SCH (07:48)
[2021-06-10] MEDS: hydrOXYzine pamoate 25 MG CAPSULE PO PRN ×2 (07:48→20:45)
[2021-06-10] MEDS: predniSONE 20 MG TABLET PO SCH (07:48)
[2021-06-10] MEDS: Budesonide/Formoterol 160/4.5 1 PUFF INH IH SCH ×2 (09:47→21:11)
[2021-06-10] MEDS: Tiotropium 10 INH DOSE IH SCH (09:47)
[2021-06-10] MEDS ORDERED: Isovue-370 500 ML BOTTLE IVP ONE (10:07)
[2021-06-10] MEDS ORDERED: Ipratropium/Albuterol Neb 3 ML IH PRN (10:07)
[2021-06-10] MEDS ORDERED: Furosemide 40 MG/4 ML VIAL IVP ONE (13:29)
[2021-06-10] MEDS: Melatonin 3 MG TABLET PO SCH (20:46)
[2021-06-10] MEDS: Chlorhexidine Rinse 15 ML MOUTHWASH MM SCH (20:46)
[2021-06-11] MEDS: Levalbuterol Neb 1.25 MG/3 ML IH SCH ×6 (00:32→20:09)
[2021-06-11 05:35] LABS: Hematocrit 28.7 % (35.3-44.9); Hemoglobin 8.6 g/dL (11.5-15.4); Mean Corpuscular Hemoglobin 30.4 pg (28.0-33.3); Mean Corpuscular Volume 101.4 fL (83.0-100.0); Mean Platelet Volume 10.4 fL (9.4-12.4); Platelet Count 257 K/mcL (140-400); Red Blood Count 2.83 M/mcL (3.82-4.97); Red Cell Distribution Width 19.4 % (11.5-14.5); White Blood Count 12.4 K/mcL (4.3-11.1)
[2021-06-11 05:55] LABS: BUN/Creatinine Ratio 26 (6-26); Blood Urea Nitrogen 27 mg/dL (8-23); Calcium 8.2 mg/dL (8.6-10.3); Carbon Dioxide 35 mEq/L (23-29); Chloride 98 mEq/L (98-107); Glucose 100 mg/dL (70-105); Magnesium 2.2 mg/dL (1.6-2.6); Osmolality,Calculated 291 (280-300); Phosphorous 2.3 mg/dL (2.7-4.5); Potassium 3.7 mEq/L (3.5-5.1); Sodium 138 mEq/L (136-145); eGFR For African Americans > 60 (> 60); eGFR For Non-African Americans 54 (> 60)
[2021-06-11 05:58] LABS: % Iron Saturation 11 % (15-50); Iron 37 mcg/dL (50-170); Transferrin 233 mg/dL (203-362)
[2021-06-11 06:16] LABS: Ferritin 399 ng/mL (10-120)
[2021-06-11 06:21] LABS: Folate 6.2 ng/mL (3.0-16.0)
[2021-06-11] MEDS ORDERED: Iron Sucrose Complex 400 MG in 0.9 % Sodium Chloride 250 ML IVPB ONE (07:43)
[2021-06-11] MEDS: Budesonide/Formoterol 160/4.5 1 PUFF INH IH SCH ×2 (08:11→20:09)
[2021-06-11] MEDS: Tiotropium 10 INH DOSE IH SCH (08:12)
[2021-06-11] MEDS: Metoprolol XL (24 HR) Succ 50 MG TAB.ER.24H PO SCH (08:18)
[2021-06-11] MEDS: hydrOXYzine pamoate 25 MG CAPSULE PO PRN (08:18)
[2021-06-11] MEDS: Multivit/Ca/Min/Fe/FA 1 TAB TABLET PO SCH (08:18)
[2021-06-11] MEDS: Chlorhexidine Rinse 15 ML MOUTHWASH MM SCH ×2 (08:18→20:51)
[2021-06-11] MEDS: predniSONE 20 MG TABLET PO SCH (08:19)
[2021-06-11] MEDS: NIFEdipine XL (24 HR) 60 MG TAB.ER.24 PO SCH (08:19)
[2021-06-11] MEDS: Calcium Gluconate 1gm/50mL 1 GM/50 ML BAG IVPB SCH ×2 (08:20→09:31)
[2021-06-11] MEDS ORDERED: Furosemide 40 MG/4 ML VIAL IVP ONE (09:00)
[2021-06-11] MEDS: Melatonin 3 MG TABLET PO SCH (20:51)
[2021-06-12] MEDS: Levalbuterol Neb 1.25 MG/3 ML IH SCH ×7 (00:04→23:34)
[2021-06-12] MEDS: Acetaminophen 325 MG TABLET PO PRN (02:02)
[2021-06-12 05:54] LABS: Hematocrit 28.8 % (35.3-44.9); Hemoglobin 8.6 g/dL (11.5-15.4); Mean Corpuscular HGB Conc 29.9 g/dL (31.6-35.5); Mean Corpuscular Hemoglobin 30.1 pg (28.0-33.3); Mean Corpuscular Volume 100.7 fL (83.0-100.0); Mean Platelet Volume 10.5 fL (9.4-12.4); Platelet Count 291 K/mcL (140-400); Red Blood Count 2.86 M/mcL (3.82-4.97); Red Cell Distribution Width 19.7 % (11.5-14.5); White Blood Count 12.5 K/mcL (4.3-11.1)
[2021-06-12 06:17] LABS: BUN/Creatinine Ratio 26 (6-26); Blood Urea Nitrogen 25 mg/dL (8-23); Calcium 8.4 mg/dL (8.6-10.3); Carbon Dioxide 38 mEq/L (23-29); Chloride 95 mEq/L (98-107); Glucose 88 mg/dL (70-105); Magnesium 2.3 mg/dL (1.6-2.6); Osmolality,Calculated 288 (280-300); Phosphorous 2.6 mg/dL (2.7-4.5); Potassium 3.6 mEq/L (3.5-5.1); Sodium 137 mEq/L (136-145); eGFR For African Americans > 60 (> 60); eGFR For Non-African Americans 60 (> 60)
[2021-06-12] MEDS: Tiotropium 10 INH DOSE IH SCH (07:31)
[2021-06-12] MEDS: Budesonide/Formoterol 160/4.5 1 PUFF INH IH SCH ×2 (07:31→20:21)
[2021-06-12] MEDS ORDERED: Furosemide 40 MG/4 ML VIAL IVP ONE (08:12)
[2021-06-12] MEDS: NIFEdipine XL (24 HR) 60 MG TAB.ER.24 PO SCH (08:35)
[2021-06-12] MEDS: Multivit/Ca/Min/Fe/FA 1 TAB TABLET PO SCH (08:35)
[2021-06-12] MEDS: hydrOXYzine pamoate 25 MG CAPSULE PO PRN (08:35)
[2021-06-12] MEDS: Metoprolol XL (24 HR) Succ 50 MG TAB.ER.24H PO SCH (08:35)
[2021-06-12] MEDS: Chlorhexidine Rinse 15 ML MOUTHWASH MM SCH ×2 (08:36→20:38)
[2021-06-12] MEDS: Calcium Gluconate 1gm/50mL 1 GM/50 ML BAG IVPB SCH ×2 (10:36→12:55)
[2021-06-12] MEDS: Melatonin 3 MG TABLET PO SCH (20:38)
[2021-06-13 02:40] LABS: Hematocrit 29.7 % (35.3-44.9); Hemoglobin 8.8 g/dL (11.5-15.4); Mean Corpuscular HGB Conc 29.6 g/dL (31.6-35.5); Mean Corpuscular Hemoglobin 29.9 pg (28.0-33.3); Mean Platelet Volume 10.3 fL (9.4-12.4); Platelet Count 274 K/mcL (140-400); Red Blood Count 2.94 M/mcL (3.82-4.97); Red Cell Distribution Width 19.8 % (11.5-14.5); White Blood Count 11.3 K/mcL (4.3-11.1)
[2021-06-13 02:59] LABS: BUN/Creatinine Ratio 26 (6-26); Blood Urea Nitrogen 29 mg/dL (8-23); Calcium 8.3 mg/dL (8.6-10.3); Carbon Dioxide 35 mEq/L (23-29); Chloride 96 mEq/L (98-107); Glucose 104 mg/dL (70-105); Magnesium 2.1 mg/dL (1.6-2.6); Osmolality,Calculated 290 (280-300); Phosphorous 2.5 mg/dL (2.7-4.5); Potassium 3.5 mEq/L (3.5-5.1); Sodium 137 mEq/L (136-145); eGFR For African Americans > 60 (> 60); eGFR For Non-African Americans 50 (> 60)
[2021-06-13] MEDS: Levalbuterol Neb 1.25 MG/3 ML IH SCH ×6 (03:27→23:37)
[2021-06-13] MEDS: Tiotropium 10 INH DOSE IH SCH (07:40)
[2021-06-13] MEDS: Budesonide/Formoterol 160/4.5 1 PUFF INH IH SCH ×2 (07:41→20:02)
[2021-06-13] MEDS: Metoprolol XL (24 HR) Succ 25 MG TAB.ER.24H PO SCH (08:23)
[2021-06-13] MEDS: NIFEdipine XL (24 HR) 30 MG TAB.ER.24 PO SCH (08:23)
[2021-06-13] MEDS: Chlorhexidine Rinse 15 ML MOUTHWASH MM SCH ×2 (08:23→19:44)
[2021-06-13] MEDS: Multivit/Ca/Min/Fe/FA 1 TAB TABLET PO SCH (08:23)
[2021-06-13] MEDS: Calcium Gluconate 1gm/50mL 1 GM/50 ML BAG IVPB SCH ×2 (08:24→09:52)
[2021-06-13] MEDS ORDERED: Furosemide 40 MG/4 ML VIAL IVP ONE (09:48)
[2021-06-13] MEDS ORDERED: Furosemide 20 MG/2 ML VIAL IVP ONE (19:00)
[2021-06-13] MEDS: Melatonin 3 MG TABLET PO SCH (19:44)
[2021-06-14 02:03] LABS: Hematocrit 32.7 % (35.3-44.9); Hemoglobin 9.9 g/dL (11.5-15.4); Mean Corpuscular HGB Conc 30.3 g/dL (31.6-35.5); Mean Corpuscular Hemoglobin 29.9 pg (28.0-33.3); Mean Corpuscular Volume 98.8 fL (83.0-100.0); Mean Platelet Volume 10.2 fL (9.4-12.4); Platelet Count 297 K/mcL (140-400); Red Blood Count 3.31 M/mcL (3.82-4.97); Red Cell Distribution Width 18.8 % (11.5-14.5); White Blood Count 12.6 K/mcL (4.3-11.1)
[2021-06-14 02:30] LABS: Alanine Aminotransferase 44 Units/L (7-52); Albumin 3.6 g/dL (3.5-5.7); Albumin/Globulin Ratio 1.2 (1.1-2.2); Alkaline Phosphatase 92 Units/L (34-104); Aspartate Amino Transferase 19 Units/L (13-39); BUN/Creatinine Ratio 25 (6-26); Bilirubin,Total 0.6 mg/dL (0.3-1.0); Blood Urea Nitrogen 25 mg/dL (8-23); Calcium 8.8 mg/dL (8.6-10.3); Carbon Dioxide 38 mEq/L (23-29); Chloride 90 mEq/L (98-107); Globulin 3.1 g/dL (2.4-3.5); Glucose 92 mg/dL (70-105); Osmolality,Calculated 288 (280-300); Sodium 137 mEq/L (136-145); Total Protein 6.7 g/dL (6.4-8.9); eGFR For African Americans > 60 (> 60); eGFR For Non-African Americans 55 (> 60)
[2021-06-14 02:32] LABS: Phosphorous 3.1 mg/dL (2.7-4.5)
[2021-06-14] MEDS: Levalbuterol Neb 1.25 MG/3 ML IH SCH ×3 (04:35→11:57)
[2021-06-14] MEDS: Chlorhexidine Rinse 15 ML MOUTHWASH MM SCH (07:52)
[2021-06-14] MEDS: Metoprolol XL (24 HR) Succ 25 MG TAB.ER.24H PO SCH (07:52)
[2021-06-14] MEDS: Multivit/Ca/Min/Fe/FA 1 TAB TABLET PO SCH (07:52)
[2021-06-14] MEDS: hydrOXYzine pamoate 25 MG CAPSULE PO PRN (07:52)
[2021-06-14] MEDS: NIFEdipine XL (24 HR) 30 MG TAB.ER.24 PO SCH (07:52)
[2021-06-14] MEDS: Furosemide 40 MG/4 ML VIAL IVP SCH ×2 (07:53→10:22)
[2021-06-14] MEDS: Albumin 25% 25gram/100mL 25 GM/100 ML IV.SOLN IVPB SCH ×2 (07:53→08:07)
[2021-06-14] MEDS: Budesonide/Formoterol 160/4.5 1 PUFF INH IH SCH (08:10)
[2021-06-14] MEDS: Tiotropium 10 INH DOSE IH SCH (08:12)
[2021-06-14 11:38] VITALS: BP 139/63; PULSE 87; TEMP 98.4
[2021-06-14 14:48] VITALS: O2SAT 87
[2021-06-14] MEDS ORDERED: Albumin 25% 25gram/100mL 25 GM/100 ML IV.SOLN IVPB ONE (18:30)
== END 2021-06-14 15:17 | disposition home health service (06) | DRG 871 ==
LOC: 2ANU → SUATTDRO 05-30 00:10
PROVIDERS: ADMIT Family Medicine; ATTEND Internal Medicine

== ENCOUNTER 2022-02-04 16:35 | Inpatient (IN) ==
[2022-02-04] MEDS ORDERED: Ondansetron 4 MG/2 ML VIAL IVP PRN (21:16)
[2022-02-04] MEDS ORDERED: Naloxone 0.4 MG/ML INJ IVP PRN (21:16)
[2022-02-04] MEDS ORDERED: *HR* OxyCODONE Immed Rel 5 MG TABLET PO PRN (21:16)
[2022-02-04] MEDS ORDERED: *HR* Promethazine 25 MG/ML VIAL IM PRN (21:16)
[2022-02-04] MEDS ORDERED: Melatonin 3 MG TABLET PO PRN (21:16)
[2022-02-04] MEDS ORDERED: Acetaminophen 325 MG TABLET PO PRN (21:16)
[2022-02-04] MEDS ORDERED: Ipratropium/Albuterol Neb 3 ML IH PRN (21:21)
[2022-02-04] MEDS ORDERED: *HR* Heparin 5,000 UNIT/ML VIAL IVP PRN ×4 (21:22→21:26)
[2022-02-04] MEDS ORDERED: Perflutren Lipid Microsphere 1.3 ML in 0.9 % Sodium Chloride 8.7 ML IVP PRN (21:24)
[2022-02-04] MEDS ORDERED: Heparin 25,000UNIT/250ML 1/2NS 25,000 UNIT/250 ML IV.SOLN IVC SCH (21:30)
[2022-02-04] MEDS ORDERED: Vancomycin 1,500 MG/265 ML IV.SOLN IVPB ONE (21:41)
[2022-02-04 22:00] LABS: Calcium 9.2 mg/dL (8.6-10.3); Potassium 5.1 mEq/L (3.5-5.1)
[2022-02-04] MEDS: Cefepime HCl 1,000 MG in 0.9 % Sodium Chloride 10 ML IVP SCH (22:05)
[2022-02-04] MEDS: Heparin 25,000UNIT/250ML 1/2NS 25,000 UNIT/250 ML IV.SOLN IVC SCH (22:06)
[2022-02-04 22:13] LABS: Troponin I 0.26 ng/mL (< 0.04)
[2022-02-04 22:43] LABS: Adenovirus Not Detected (Not Detect); Bordetella Pertussis Not Detected (Not Detect); Chlamydophila pneumoniae Not Detected (Not Detect); Coronavirus 229E Not Detected (Not Detect); Coronavirus HKU1 Not Detected (Not Detect); Coronavirus NL63 Not Detected (Not Detect); Coronavirus OC43 Not Detected (Not Detect); Human Metapneumovirus Not Detected (Not Detect); Human Rhinovirus/Enterovirus Not Detected (Not Detect); Influenza A Subtype 2009 H1 Not Detected (Not Detect); Influenza B Not Detected (Not Detect); Mycoplasma pneumoniae Not Detected (Not Detect); Parainfluenza Virus 1 Not Detected (Not Detect); Parainfluenza Virus 2 Not Detected (Not Detect); Parainfluenza Virus 3 Not Detected (Not Detect); Parainfluenza Virus 4 Not Detected (Not Detect); Respiratory Syncytial Virus Not Detected (Not Detect); SARS-CoV-2 Not Detected (Not Detect)
[2022-02-05] MEDS: Ipratropium/Albuterol Neb 3 ML IH SCH ×4 (00:24→11:36)
[2022-02-05 01:30] LABS: Bilirubin,Urine Negative (Negative); Blood,Urine Small (Negative); Clarity,Urine Clear (Clear); Color,Urine Light-Yellow (Yellow); Glucose,Urine (UA) Normal (Normal); Ketones,Urine Negative (Negative); Leukocyte Esterase,Urine Small (Negative); Mucus,Urine Few per lpf (None-Few); Nitrite,Urine Negative (Negative); Protein,Urine Trace mg/dL (Neg-Trace); RBC,Urine 30-50 per hpf (0-3); Specific Gravity,Urine 1.013 (1.010-1.025); Squamous Epithelial Cell,Urine Few per hpf (None-Few); Urobilinogen,Urine Normal (Normal); WBC,Urine 15-30 per hpf (0-3)
[2022-02-05 01:52] LABS: Protein/Creatinine Ratio,Urine 0.66 mg/mg (0.00-0.20); Sodium, Urine 79.6 mEq/L
[2022-02-05 04:39] LABS: Basophils # 0.1 K/mcL (0.0-0.2); Basophils % 0.7 %; Eosinophils # 0.4 K/mcL (0.0-0.6); Eosinophils % 2.4 %; Hematocrit 27.1 % (35.3-44.9); Immature Granulocytes % 1.8 % (0-4); Lymphocytes % 5.5 %; Mean Corpuscular HGB Conc 29.5 g/dL (31.6-35.5); Mean Corpuscular Hemoglobin 26.9 pg (28.0-33.3); Mean Corpuscular Volume 91.2 fL (83.0-100.0); Mean Platelet Volume 9.5 fL (9.4-12.4); Monocytes # 2.1 K/mcL (0.0-1.3); Monocytes % 11.6 %; Neutrophils # 14.1 K/mcL (1.6-8.9); Nucleated Red Blood Cells 0.4 /100 WBC (0); Platelet Count 337 K/mcL (140-400); Red Blood Count 2.97 M/mcL (3.82-4.97); Red Cell Distribution Width 16.7 % (11.5-14.5); White Blood Count 18.1 K/mcL (4.3-11.1)
[2022-02-05 04:47] LABS: INR 1.7; Prothrombin Time 19.1 Seconds (9.4-12.1)
[2022-02-05 05:00] LABS: Calcium 8.9 mg/dL (8.6-10.3); Chol/HDL Ratio 3.4 (0-4.9); Magnesium 2.5 mg/dL (1.6-2.6); Phosphorous 4.3 mg/dL (2.7-4.5); Potassium 4.7 mEq/L (3.5-5.1)
[2022-02-05 05:15] LABS: Activated Partial Thrombo Time 33.2 Seconds (26.0-36.0)
[2022-02-05] MEDS ORDERED: MethylPREDNISolone 40 MG/ML VIAL IVP SCH (06:00)
[2022-02-05 06:48] LABS: Troponin I 0.25 ng/mL (< 0.04)
[2022-02-05 06:54] LABS: Thyroid Stimulating Hormone 0.82 mcIU/mL (0.340-5.600)
[2022-02-05] MEDS: Cefepime HCl 1,000 MG in 0.9 % Sodium Chloride 10 ML IVP SCH (08:19)
[2022-02-05] MEDS ORDERED: Furosemide 40 MG/4 ML VIAL IVP SCH (09:00)
[2022-02-05] MEDS ORDERED: Metoprolol XL (24 HR) Succ 25 MG TAB.ER.24H PO SCH (09:00)
[2022-02-05] MEDS ORDERED: Aspirin Enteric Coated 81 MG Tablet PO SCH (09:00)
[2022-02-05] MEDS ORDERED: Apixaban 5 MG TABLET PO SCH (09:00)
[2022-02-05] MEDS ORDERED: *HR* Metoprolol 5 MG/5 ML VIAL IVP ONE (12:47)
[2022-02-05] MEDS ORDERED: DilTIAZem 50 MG in 0.9 % Sodium Chloride 40 ML IVC SCH (13:45)
[2022-02-05] MEDS: Heparin 25,000UNIT/250ML 1/2NS 25,000 UNIT/250 ML IV.SOLN IVC SCH (14:13)
[2022-02-05] MEDS ORDERED: *HR* Digoxin 0.5 MG/2 ML AMPUL IVP ONE (14:48)
[2022-02-05] MEDS: Levalbuterol 1 PUFF INHALER IH SCH ×2 (15:45→22:51)
[2022-02-05 15:58] VITALS: BP 111/84; TEMP 98.5
[2022-02-05] MEDS ORDERED: Furosemide 40 MG TABLET PO SCH (17:00)
[2022-02-05 19:55] VITALS: PULSE 170; O2SAT 92
[2022-02-06] MEDS: Levalbuterol 1 PUFF INHALER IH SCH (04:31)
== END 2022-02-05 16:00 | disposition left against medical advice (07) | DRG 871 ==
LOC: 2NENU → SUATTDRO 21:16
PROVIDERS: ADMIT Internal Medicine; ATTEND Internal Medicine